=== PATIENT | male | born 1995 | race Caucasian/White ===

== ENCOUNTER 2016-10-22 22:18 | Emergency (ER) | payer BC, OTHER ==
[~2016-10-22] VITALS: Ht 172.7 cm; Wt 95.3 kg
[2016-10-22] MEDS ORDERED: KETOROLAC 30 MG/ML VIAL IVP STA (22:37)
[2016-10-22] MEDS ORDERED: NS IV 1000 ML 1,000 ML IV ONE (22:37)
[2016-10-22] MEDS ORDERED: fentaNYL INJECTION 100 MCG/2 ML AMP IVP STA (22:37)
[2016-10-22 22:49] LABS: BASOPHILS % (AUTO) 0 % (0-10); EOSINOPHILS # (AUTO) 0.2 10^3/uL (0.0-0.3); EOSINOPHILS % (AUTO) 3 % (0-10); LYMPHOCYTES # (AUTO) 2.5 X 10^3 (1.0-4.0); LYMPHOCYTES % (AUTO) 30 % (12-44); MEAN CORPUSCULAR HEMOGLOBIN 30 PG (25-34); MEAN CORPUSCULAR HGB CONC 35 G/DL (32-36); MEAN CORPUSCULAR VOLUME 84 FL (80-99); MEAN PLATELET VOLUME 10.3 FL (7.4-10.4); MONOCYTES # (AUTO) 1.1 X 10^3 (0.0-1.0); MONOCYTES % (AUTO) 14 % (0-12); NEUTROPHILS # (AUTO) 4.4 X 10^3 (1.8-7.8); NEUTROPHILS % (AUTO) 53 % (42-75); PLATELET COUNT 265 10^3/uL (130-400); RED BLOOD COUNT 5.27 10^6/uL (4.35-5.85); RED CELL DISTRIBUTION WIDTH 11.8 % (10.0-14.5); WHITE BLOOD COUNT 8.3 10^3/uL (4.3-11.0)
--- NOTE | 2016-10-22 22:58 | ED GI ---
General Chief Complaint: Abdominal/GI Problems Stated Complaint: LOWER ABD PAIN Nursing Triage Note: PAIN IN LLQ ABD STARTING THIS AM, PROGRESSIVELY GETTING WORSE, PAIN WITH MOVEMENT. NAUSEA, DENIES PROBLEMS URINATING/BM, NO BLOOD IN URINE OR STOOL. Sepsis Screen: No Definite Risk Source of Information: Patient Exam Limitations: No Limitations History of Present Illness Time Seen By Provider: 22:30 Initial Comments Here with complaint of left lower quadrant abdominal pain that has worsened throughout the day. Does have some nausea but no vomiting or diarrhea. Normal bowel movement about 3 p.m. today. Denies fever or chills. Timing/Duration: 12 Hours Severity/Quality: Moderate, Sharp, Stabbing Location: LLQ Radiation: No Radiation Activities at Onset: None Modifying Factors: Worsens With Movement Associated Symptoms: No Back Pain, No Chest Pain, No Fever/Chills, Nausea/ Vomiting, No Swelling/Mass in Abdomen, No Weakness Allergies and Home Medications Allergies Coded Allergies: No Known Drug Allergies (Unverified , 10/22/16) Review of Systems Constitutional: see HPI, No chills, No fever EENTM: No Symptoms Reported Respiratory: No Symptoms Reported Cardiovascular: No Symptoms Reported Gastrointestinal: See HPI, Abdominal Pain, Denies Blood Streaked Stools, Denies Constipated, Denies Diarrhea, Nausea, Denies Rectal Bleeding, Denies Vomiting Genitourinary: No Symptoms Reported, Denies Flank Pain, Denies Hematuria, Denies Pain Musculoskeletal: no symptoms reported Skin: no symptoms reported Psychiatric/Neurological: No Symptoms Reported All Other Systems Reviewed Negative Unless Noted: Yes Past [place] Hx Patient Social History Alcohol Use: Denies Use Recreational Drug Use: No Smoking Status: Never a Smoker Recent Foreign Travel: No Contact w/Someone Who Travel: No Recent Infectious Disease Expo: No Surgeries HX Surgeries: Yes Surgeries: Orthopedic Respiratory Hx Respiratory Disorders: No Cardiovascular Hx Cardiac Disorders: No Neurological Hx Neurological Disorders: No Genitourinary Hx Genitourinary Disorders: No Gastrointestinal Hx Gastrointestinal Disorders: No Musculoskeletal Hx Musculoskeletal Disorders: No Psychosocial Hx Psychiatric Problems: Yes Behavioral Health Disorders: Depression Reviewed Nursing Assessment Reviewed/Agree w Nursing PMH: Yes Family Medical History Significant Family History: No Pertinent Family Hx Physical Exam Vital Signs VS - Last 72 Hours, by Label 10/22/16 22:33 Temp 97.4 Pulse 76 Resp 19 B/P (MAP) 146/81 Pulse Ox 97 O2 Delivery Room Air Capillary Refill : Less Than 3 Seconds General Appearance: WD/WN, no apparent distress HEENT: PERRL/EOMI, pharynx normal Neck: non-tender, supple Respiratory: lungs clear, normal breath sounds Cardiovascular: regular rate, rhythm, no murmur Peripheral Pulses: 2+ Dorsalis Pedis (R), 2+ Left Dors-Pedis (L), 2+ Radial Pulses (R), 2+ Radial Pulses (L) Gastrointestinal: soft, No guarding, No rebound, tenderness (left lower quadrant) Extremities: normal range of motion, non-tender, normal inspection Back: normal inspection, no CVA tenderness, no vertebral tenderness Neurologic/Psychiatric: alert, oriented x 3 Skin: normal color, warm/dry Progress/Results/Core Measures Results/Orders Lab Results Laboratory Tests Test 10/22/16 22:41 10/22/16 23:25 Range/Units White Blood Count 8.3 4.3-11.0 10^3/uL Red Blood Count 5.27 4.35-5.85 10^6/uL Hemoglobin 15.6 13.3-17.7 G/DL Hematocrit 44 40-54 % Mean Corpuscular Volume 84 80-99 FL Mean Corpuscular Hemoglobin 30 25-34 PG Mean Corpuscular Hemoglobin Concent 35 32-36 G/DL Red Cell Distribution Width 11.8 10.0-14.5 % Platelet Count 265 130-400 10^3/uL Mean Platelet Volume 10.3 7.4-10.4 FL Neutrophils (%) (Auto) 53 42-75 % Lymphocytes (%) (Auto) 30 12-44 % Monocytes (%) (Auto) 14 H 0-12 % Eosinophils (%) (Auto) 3 0-10 % Basophils (%) (Auto) 0 0-10 % Neutrophils # (Auto) 4.4 1.8-7.8 X 10^3 Lymphocytes # (Auto) 2.5 1.0-4.0 X 10^3 Monocytes # (Auto) 1.1 H 0.0-1.0 X 10^3 Eosinophils # (Auto) 0.2 0.0-0.3 10^3/uL Basophils # (Auto) 0.0 0.0-0.1 10^3/uL Sodium Level 140 135-145 MMOL/L Potassium Level 3.7 3.6-5.0 MMOL/L Chloride Level 108 H 98-107 MMOL/L Carbon Dioxide Level 19 L 21-32 MMOL/L Anion Gap 13 5-14 MMOL/L Blood Urea Nitrogen 14 7-18 MG/DL Creatinine 1.02 0.60-1.30 MG/DL Estimat Glomerular Filtration Rate > 60 BUN/Creatinine Ratio 14 Glucose Level 116 H 70-105 MG/DL Calcium Level 9.6 8.5-10.1 MG/DL Total Bilirubin 0.6 0.1-1.0 MG/DL Aspartate Amino Transf (AST/SGOT) 33 5-34 U/L Alanine Aminotransferase (ALT/SGPT) 65 H 0-55 U/L Alkaline Phosphatase 63 40-136 U/L Total Protein 7.5 6.4-8.2 G/DL Albumin 4.6 H 3.2-4.5 G/DL Urine Color YELLOW Urine Clarity SLIGHTLY CLOUDY Urine pH 6 5-9 Urine Specific [place] 1.025 H 1.016-1.022 Urine Protein 1+ H NEGATIVE Urine Glucose (UA) NEGATIVE NEGATIVE Urine Ketones NEGATIVE NEGATIVE Urine Nitrite NEGATIVE NEGATIVE Urine Bilirubin NEGATIVE NEGATIVE Urine Urobilinogen NORMAL NORMAL MG/DL Urine Leukocyte Esterase NEGATIVE NEGATIVE Urine RBC (Auto) 1+ H NEGATIVE Urine RBC RARE /HPF Urine WBC NONE /HPF Urine Squamous Epithelial Cells RARE /HPF Urine Crystals PRESENT H /LPF Urine Amorphous Sediment MOD MERVAT URATES H /LPF Urine Bacteria TRACE /HPF Urine Casts NONE /LPF Urine Mucus MODERATE H /LPF Urine Culture Indicated NO My Orders Orders - ROGELIO GLASER MD Cbc With Automated Diff (10/22/16 22:37) Comprehensive Metabolic Panel (10/22/16 22:37) Ua Culture If Indicated (10/22/16 22:37) Saline Lock/Iv-Start (10/22/16 22:37) Ns Iv 1000 Ml (Sodium Chloride 0.9%) (10/22/16 22:37) Fentanyl Injection (Sublimaze Injection (10/22/16 22:37) Ketorolac Injection (Toradol Injection) (10/22/16 22:37) Ct Abd/Pelv W (Appendicitis) (10/23/16 00:01) Iohexol Injection (Omnipaque 350 Mg/Ml 1 (10/23/16 00:15) Ns (Ivpb) (Sodium Chloride 0.9% Ivpb Bag (10/23/16 00:15) Hydrocodone/Apap 5/325 Tablet (Lortab 5 (10/23/16 00:52) Medications Given in ED Current Medications Medications Dose Ordered Sig/Hanna Route Start Time Stop Time Status Last Admin Dose Admin Iohexol 100 ml ONCE ONCE IV 10/23/16 00:15 10/23/16 00:16 DC 10/23/16 00:14 100 ML Sodium Chloride 100 ml ONCE ONCE IV 10/23/16 00:15 10/23/16 00:16 DC 10/23/16 00:14 80 ML Sodium Chloride 1,000 ml @ 0 mls/hr Q0M ONCE IV 10/22/16 22:37 10/22/16 22:39 DC 10/22/16 22:57 1,000 MLS/HR Vital Signs/I&O Vital Sign - Last 12Hours 10/22/16 22:33 Temp 97.4 Pulse 76 Resp 19 B/P (MAP) 146/81 Pulse Ox 97 O2 Delivery Room Air Intake and Output 10/23/16 00:00 Intake Total 1000 ml Balance 1000 ml Blood Pressure Mean: 102 Progress Note : Progress Note Seen and evaluated. IV, labs, normal saline 1 L bolus and UA ordered. CT abdomen pelvis ordered. Patient did receive fentanyl 50 g IV and Toradol 30 mg IV. This did help with the pain. 0054: CT results noted and discussed with patient. He is feeling much better but does have some residual pain. Hydrocodone 5/325 one tab by mouth given. Patient does have epiploic appendicitis and this was discussed with the patient. This is usually self- limiting. Discharged home with return precautions. Patient given follow-up instructions for surgeon as needed and return precautions. Patient verbalize understanding instructions and agreement with plan. Diagnostic Imaging Diagonstic Imaging: CT Plain Films/CT/US/NM/MRI: abdomen, pelvis Comments Mild stranding anterior to the distal descending colon with central fat is concerning for epiploic appendage I does. Focal colitis or diverticulitis is felt to be less likely. No free air or free fluid noted. Otherwise unremarkable. Reviewed: Reviewed [place] Study, Reviewed by Me Departure Impression Impression: Primary Impression: Appendicitis epiploica Disposition: HOME, SELF-CARE Condition: Improved Departure-Patient Inst. Decision time for Depature: 00:56 Referrals: BEULAH HUSSEIN MD, FLOYD R MD (PCP/Family) Primary Care Physician Patient Instructions: Acute Abdomen (Belly Pain), Adult (DC) Add. Discharge Instructions: All discharge instructions reviewed with patient and/or family. Voiced understanding. You may take ibuprofen 800 mg every 8 hours as needed for pain. Drink plenty of fluids. Eat a light diet. Rest today. Take other medications as prescribed. Follow-up with the surgeon listed or of your choice if pain is not improving. Return for worse pain, fever, vomiting, weakness, breathing problems or other concerns as needed. Scripts Hydrocodone/Acetaminophen (Hydrocodon -Acetaminophen 5-325) 1 Each Tablet 1 EACH PO Q6H Y for PAIN-MODERATE, #8 TAB 0 Refills Prov: ROGELIO GLASER MD 10/23/16 Work/School Note: Work Release Form Date Seen in the Emergency Department: Oct 22, 2016 Return to Work: Oct 24, 2016 Restrictions: No Restrictions ROGELIO GLASER MD Oct 22, 2016 22:58
[2016-10-22 23:07] LABS: ALANINE AMINOTRANSFERASE 65 U/L (0-55); ALBUMIN 4.6 G/DL (3.2-4.5); ANION GAP 13 MMOL/L (5-14); ASPARTATE AMINO TRANSFERASE 33 U/L (5-34); BILIRUBIN,TOTAL 0.6 MG/DL (0.1-1.0); BLOOD UREA NITROGEN 14 MG/DL (7-18); BUN/CREATININE RATIO 14; CALCIUM 9.6 MG/DL (8.5-10.1); CARBON DIOXIDE 19 MMOL/L (21-32); CHLORIDE 108 MMOL/L (98-107); CREATININE SERUM 1.02 MG/DL (0.60-1.30); GFR ESTIMATED > 60; GLUCOSE 116 MG/DL (70-105); POTASSIUM 3.7 MMOL/L (3.6-5.0); SODIUM 140 MMOL/L (135-145); TOTAL PROTEIN 7.5 G/DL (6.4-8.2)
[2016-10-22 23:32] LABS: BILIRUBIN,URINE NEGATIVE (NEGATIVE); KETONES,URINE NEGATIVE (NEGATIVE); LEUKOCYTE ESTERASE ,URINE NEGATIVE (NEGATIVE); NITRITE,URINE NEGATIVE (NEGATIVE); PH,URINE 6 (5-9); PROTEIN,URINE 1+ (NEGATIVE); UROBILINOGEN,URINE NORMAL (NORMAL)
[2016-10-22 23:45] LABS: SQUAMOUS EPITHELIAL CELL,UR RARE /HPF
[2016-10-23] MEDS ORDERED: NS 100 ML (IVPB) BAG IV ONE (00:15)
[2016-10-23] MEDS ORDERED: IOHEXOL 350 MG/ML 100 ML (OMNIPAQUE 350) VIAL IV ONE (00:15)
[2016-10-23] MEDS ORDERED: HYDROcodone/APAP 5 MG/325 MG (LORTAB) TAB PO STA (00:52)
[2016-10-23] MEDS ORDERED: HYDR-3812 PO (01:02)
[2016-10-23 01:06] VITALS: BP 146/81
--- NOTE | 2016-10-23 07:15 | Diagnostic Imaging Report ---
PROCEDURE: CT abdomen and pelvis with contrast, rule out appendicitis. TECHNIQUE: Multiple contiguous axial images were obtained through the abdomen and pelvis after the administration of intravenous contrast. INDICATION: Left lower quadrant abdominal pain. FINDINGS: No focal hepatic or splenic abnormality is identified. There is mild low-density in the liver which may be due to steatosis. No gallbladder or pancreatic lesion is detected. Adrenal glands and kidneys are unremarkable. There is a region of mild increased density adjacent to the descending colon without focal fluid collection or pneumoperitoneum. There is no free fluid seen in the abdomen or pelvis. Appendix has a normal appearance. Partially opacified urinary bladder is unremarkable. IMPRESSION: Fat stranding adjacent to the descending colon may represent epiploic appendagitis or focal colitis. There is no evidence of pneumoperitoneum or perforation. Dictated by: Dictated on workstation # [id number]
== END 2016-10-23 01:06 | disposition home or self-care (01) ==
LOC: EDUNIT# 22:18 → ER 22:22
DX: K36 Other appendicitis (principal)
CPT/HCPCS: 36415; 74177; 80053; 81000; 85025